=== PATIENT | male | born 1995 | race Caucasian/White ===

== ENCOUNTER 2019-03-07 03:09 | Emergency (ER) | payer OTHER ==
--- NOTE | 2019-03-07 03:38 | PDOC ---
Attending Attestation - Resident Resident Name: [facility] ED Attending Attestation I have performed the following: I have examined & evaluated the patient, The case was reviewed & discussed with the resident, I agree w/resident's findings & plan
[2019-03-07] MEDS ORDERED: ACETAMINOPHEN 500 MG TABLET (FP) PO ONE (03:41)
[2019-03-07] MEDS ORDERED: LACTATED RINGERS SOLUTION 1000 ML INFUS.BAG IV ONE (03:41)
[2019-03-07] MEDS ORDERED: ACETAMINOPHEN 325 MG TABLET (FP) ONE (03:45)
--- NOTE | 2019-03-07 03:56 | PDOC ---
Attending Attestation - Resident Resident Name: Cisco Cevallos - ED Attending Attestation I have performed the following: I have examined & evaluated the patient, The case was reviewed & discussed with the resident, I agree w/resident's findings & plan - HPI HPI: 03/07/19 05:36 Pt states that he has diarrhea x 2 years. Always has LLQ pain;Now with RLQ pain. Pt has no PMHX He is being worked up by GI and he was told to eat "no fiber." Pt eats only meat and rice or chicken and potatoes. - Physicial Exam PE: 03/07/19 05:38 Agree with resident exam. Pt is afebrile Abd very gassy No flank pain; pt has minimal rebound. 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 03/07/19 06:50 Patient Name: JOSSIE SALINAS THIS IS A PRELIMINARY REPORT FROM [facility] DATE OF SERVICE: 2019-03-07 05:36:41 IMAGES: [id number] EXAM: ABDOMEN \\T\\ PELVIS CT WITH CONTR HISTORY: Right lower quadrant pain COMPARISON: 99. FINDINGS: Lung bases are clear. The visualized cardiac chambers are normal size and configuration. Normal liver, gallbladder, pancreas, spleen, adrenal glands and kidneys. The stomach and abdominal small and large bowel are normal. There is no aortic aneurysm. There is no significant retroperitoneal lymphadenopathy. The pelvic small and large bowel are normal. The retrocecal appendix is normal. The urinary bladder and prostate gland are normal. No pelvic free fluid is identified. There is no significant pelvic lymphadenopathy. IMPRESSION: No localizing signs for acute pathology.
[2019-03-07 03:57] VITALS: BP 143/77; PULSE 75; TEMP 98.5; BMI 28.7
--- NOTE | 2019-03-07 04:05 | PDOC ---
History of Present Illness - General Chief Complaint: Pain Stated Complaint: ABD PAIN Time Seen by Provider: 03/07/19 03:26 History Source: Patient, Old Records Exam Limitations: No Limitations - History of Present Illness Initial Comments: HPI: 23 y/o male presenting to [facility] ER complaining of RLQ and LUQ abdominal pain with diarrhea that woke the pt from sleep tonight. Described as nonradiating tonight. Denies nausea, vomiting, or fevers. Pt reports he has a two year history of chronic abdominal pain and diarrhea. The pain usually starts after eating and resolves after having a bowel movement. He is undergoing an outpatient workup by Dr. Andrade. CTAP was performed in December 2018 that was suspicious for chronic or subacute appendicitis. He was placed on an unknown antibiotic for two weeks. Pt denies improvement in symptoms. Presented to the ED tonight because the pain is more intense than usual, especially in the RLQ. Did not attempt relief with any medication. No history of abdominal surgery. Medical Hx: - Denies past medical history. Denies prescription medications. Review of Systems: In addition to that documented in the HPI above, the additional ROS was obtained : Constitutional- Denies fevers or chills Head- Denies vision changes ENMT- Denies sore throat CV- Denies chest pain Resp- Denies SOB GI- Denies vomiting, decreased appetite, or bloody bowel movements - Denies painful urination, hematuria, testicular pain, or penile discharge MSK- Denies recent trauma Skin- Denies new rashes Neuro- Denies new numbness or tingling or weakness Endocrine- Denies polyuria Heme- Denies bleeding or bruising Physical Examination: Constitutional- Well-developed, well-nourished adult male in no acute distress or obvious discomfort. Found semi-fowlers on hospital bed. Answered all questions appropriately and completely. Head- Normocephalic. No obvious external signs of trauma. Neck- Supple, trachea is midline. Cardiovascular / Chest- Regular rate and regular rhythm. No murmur, rubs, clicks , or gallops. Peripheral pulses- radial pulses full. Respiratory- Breathing unlabored. Equal chest rise and fall. Clear to auscultation bilaterally. No stridor, no wheezing, no rhonchi. Gastrointestinal- abdomen is tender in RLQ with grimace but no rebound or guarding. Also tender in LUQ without grimace, rebound, or guarding. Globally, the abdomen is soft and nondistended. No hepatosplenemegaly. No pulsatile masses. No overlying skin lesions or obvious signs of trauma. Pt transitioned from supine to fowlers position without obvious discomfort. Male : Genital exam revealed normally developed male genitalia. Circumcised penis. Two descended testicles. No scrotal mass or tenderness, no hernias or inguinal lymphadenopathy. No perineal or perianal abnormalities are seen. No genital lesions or urethral discharge. RN chaperoned exam. Neuro- Alert and oriented x4. Moving all four extremities spontaneously. No facial asymmetry. No slurred speech. No focal deficits. No upper or lower extremity drift. Cranial nerves intact. Sensation to all four extremities intact. Proximal and distal strength 5/5. Die Maker Stamping strength 5/5 - equal and symmetric. Plantar flexion and dorsiflexion 5/5. No nuchal rigidity. Skin- Warm, dry, and intact. - No R or L CVA tenderness. Psych- Affect- flat. Mood- normal. Speech was non-labored, non-pressured. MDM: *Reviewed vital signs, nursing notes, and prior visit documentation (if available). 23 y/o male presenting with RLQ and LUQ abdominal pain with diarrhea acute on chronically for the past two years. Afebrile. Vitals unremarkable for hypotension or tachycardia. Physical exam as described above. Repeated CTAP given possible chronic appendicitis on previous scan. Today's CT unremarkable for appendicitis or other acute pathology. No leukocytosis, electrolyte derangement, elevated LFTs, or lipase. Ordered Tylenol and IVFB for symptom relief. Pt reassessed. Reports abdominal pain has somewhat improved. Repeat abdominal exam unchanged from the initial exam. No acute abdominal signs. Suspect possible IBS. Discussed labs and CT results with pt. Answered all questions. Provided return precautions. pt expressed verbal understanding and agreement with plan to discharge home with outpatient follow up. Provided copies of today results. Cisco Cevallos M.D., PGY2 Emergency Medicine Resident Past History - Past Medical History Allergies/Adverse Reactions: Allergies Allergy/AdvReac Type Severity Reaction Status Date / Time No Known Allergies Allergy Verified 03/07/19 04:04 - Psycho Social/Smoking Cessation Hx Smoking History: Never smoked Have you smoked in the past 12 months: No Information on smoking cessation initiated: No Hx Alcohol Use: No Drug/Substance Use Hx: No *Physical Exam - Vital Signs Last Vital Signs Temp Pulse Resp BP Pulse Ox 98.5 F 75 20 143/77 98 03/07/19 03:40 03/07/19 03:40 03/07/19 03:40 03/07/19 03:40 03/07/19 03:40 ED Treatment Course - LABORATORY CBC & Chemistry Diagram: 03/07/19 03:55 03/07/19 03:55 - RADIOLOGY Radiology Studies Ordered: Category Date Time Status ABDOMEN & PELVIS CT WITH CONTR [CT] Stat CT Scan 03/07/19 04:01 Ordered Radiograph Interpretation: CTAP: THIS IS A PRELIMINARY REPORT FROM [facility] DATE OF SERVICE: 2019-03-07 05:36:41 IMAGES: [id number] EXAM: ABDOMEN \T\ PELVIS CT WITH CONTR HISTORY: Right lower quadrant pain COMPARISON: 99. FINDINGS: Lung bases are clear. The visualized cardiac chambers are normal size and configuration. Normal liver, gallbladder, pancreas, spleen, adrenal glands and kidneys. The stomach and abdominal small and large bowel are normal. There is no aortic aneurysm. There is no significant retroperitoneal lymphadenopathy. The pelvic small and large bowel are normal. The retrocecal appendix is normal. The urinary bladder and prostate gland are normal. No pelvic free fluid is identified. There is no significant pelvic lymphadenopathy. IMPRESSION: No localizing signs for acute pathology. One or more of the following dose reduction techniques were used: automated exposure control, adjustment of the mA and/or kV according to patient size, use of iterative reconstructive technique. THIS DOCUMENT HAS BEEN ELECTRONICALLY SIGNED Michael Hopkins MD 03/07/2019 06:03 EST Discharge - Discharge Information Problems reviewed: Yes Clinical Impression/Diagnosis: Abdominal pain in male Diarrhea Qualifiers: Diarrhea type: unspecified type Qualified Code(s): R19.7 - Diarrhea, unspecified Condition: Good Disposition: HOME - Admission No - Follow up/Referral Referrals: Jerome Andrade MD [Staff Physician] - - Patient Discharge Instructions Patient Printed Discharge Instructions: Diarrhea (Alternative Therapy), DI for Abdominal Pain-Adult Additional Instructions: You were seen today for right lower and left upper quadrants abdominal pain with diarrhea. Your CT scan did not show any significant changes from the one taken in December. Your blood work was also normal. Your pain today is likely related to the pain you have been experiencing over the past two years. You can take over the counter Tylenol as needed for pain. Take as directed on the package insert. Do not exceed the recommended dosage. Follow up with Dr. Live in the next 3-4 days. You will need to call to make an appointment. The number is included in this packet. A copy of todays results are attached to this packet. Take it to the appointment so your doctor can review them. Go to the nearest emergency department if your condition worsens or you feel like you need additional emergency evaluation. Watch for worsening pain in the lower right side with vomiting and fever as this could be a sign of a more serious infection. Print Language: TAMAZIGHT - Post Discharge Activity Work/Back to School Note: Back to Work
[2019-03-07 04:07] LABS: BASO % 1.3 % (0-2.0); EOS % 1.8 % (0-4.5); HEMATOCRIT 44.3 % (35.4-49); HEMOGLOBIN 15.2 GM/dL (11.7-16.9); LYMPH % 30.3 % (8-40); MCH 30.1 pg (25.7-33.7); MCHC 34.3 g/dl (32.0-35.9); MEAN CELL VOLUME 87.9 fl (80-96); MEAN PLT VOLUME 8.3 fl (7.5-11.1); MONO % 8.6 % (3.8-10.2); PLATELET COUNT 290 K/MM3 (134-434); RBC 5.04 M/mm3 (4.00-5.60); WHITE BLOOD COUNT 9.8 K/mm3 (4.0-10.0)
[2019-03-07 04:32] LABS: ALBUMIN 4.3 g/dl (3.4-5.0); BILIRUBIN,TOTAL 0.5 mg/dL (0.2-1); CALCIUM 9.3 mg/dL (8.5-10.1); CREATININE 1.2 mg/dL (0.55-1.3); TOT PROT 7.6 g/dl (6.4-8.2)
[2019-03-07 06:15] LABS: EPI CELLS 0.1 /HPF (0-5/HPF); HYALINE CASTS 0 /lpf (0-8); PH,URINE 5.5 (5.0-8.0); URINE APPEARANCE CLEAR; URINE BACTERIA 0.8 /hpf (NEGATIVE); URINE BILIRUBIN NEGATIVE (NEGATIVE); URINE COLOR YELLOW; URINE GLUCOSE (UA) NEGATIVE (NEGATIVE); URINE KETONE NEGATIVE (NEGATIVE); URINE LEUK ESTERASE TRACE (NEGATIVE); URINE NITRITE NEGATIVE (NEGATIVE); URINE PROTEIN NEGATIVE (NEGATIVE); URINE RBC 0 /hpf (0-4); URINE UROBILINOGEN 0.2 mg/dL (0.2-1.0); URINE WBC 3 /hpf (0-5)
== END 2019-03-07 06:16 | disposition home or self-care (01) ==
LOC: JER 03:09
DX: R10.84 Generalized abdominal pain (principal); R19.7 Diarrhea, unspecified
CPT/HCPCS: 36415; 74177-TC; 80053; 81003; 83690; 85025; 87086; 99282-25